=== PATIENT | male | born 1965 | race Two or more races ===

== ENCOUNTER 2018-10-17 15:14 | Emergency (ER) | payer MEDICAID ==
[~2018-10-17] VITALS: Ht 175.3 cm; Wt 90.7 kg
[2018-10-17 15:32] VITALS: BP 123/70
[2018-10-17 15:47] LABS: BASOPHILS % (AUTO) 1.1 % (0.0-2.0); EOSINOPHILS % (AUTO) 7.1 % (0.0-3.0); HEMATOCRIT 46.4 % (42.0-52.0); HEMOGLOBIN 14.9 G/DL (14.2-18.0); LYMPHOCYTES % (AUTO) 8.8 % (20.0-45.0); MEAN CORPUSCULAR VOLUME 84 FL (80-99); MONOCYTES % (AUTO) 7.2 % (1.0-10.0); NEUTROPHILS % (AUTO) 75.8 % (45.0-75.0); PLATELET COUNT 172 K/UL (150-450); RED BLOOD COUNT 5.53 M/UL (4.70-6.10); RED CELL DISTRIBUTION WIDTH 11.9 % (11.6-14.8)
[2018-10-17 16:01] LABS: AMMONIA 31 umol/L (11-32)
--- NOTE | 2018-10-17 16:02 | NUR ---
ED Nurse Note: pt toria from home aloc pt found down on the bed by . called ems . pt was awake alert in AM. Blood sent to lab ekg done pt down to imaging. Addendum: 10/17/18 at 1715 by CDALICEO ED Nurse Note: Pt. brought in by ra Delcid due to aloc
[2018-10-17 16:04] LABS: ANION GAP 12 mmol/L (5-15); BLOOD UREA NITROGEN 12 mg/dL (7-18); CALCIUM 9.1 MG/DL (8.5-10.1); CARBON DIOXIDE 23 MMOL/L (21-32); CHLORIDE 104 MMOL/L (98-107); CREATININE 0.9 MG/DL (0.55-1.30); POTASSIUM 4.1 MMOL/L (3.5-5.1); SODIUM 139 MMOL/L (136-145)
[2018-10-17 16:05] LABS: ALANINE AMINOTRANSFERASE 21 U/L (12-78); ALBUMIN 3.8 G/DL (3.4-5.0); ALBUMIN/GLOBULIN RATIO 0.9 (1.0-2.7); ALKALINE PHOSPHATASE 93 U/L (46-116); ASPARTATE AMINO TRANSFERASE 15 U/L (15-37); BILIRUBIN,TOTAL 0.6 MG/DL (0.2-1.0)
--- NOTE | 2018-10-17 16:27 | Diagnostic Imaging Report ---
Indication: Status Technique: Contiguous 5 mm thick transaxial imaging of the head obtained in a Siemens Sensation [address] scanner. Soft tissue and bone windows generated. Automatic Exposure Control was utilized. Total Dose length Product (DLP): 1410.[address] Dose Index Volume (CTDIvol): 70.38 mGy Comparison: none Findings: There is a 2.2 x 3.9 x 3.4 cm acute hematoma within the left thalamus. The hematoma extends into the ventricular system with hypodense blood demonstrated in both lateral ventricles, the third and fourth ventricles and foramen of Luschka. Moderate ventricular dilatation is present consistent with hydrocephalus. There is considerable artifact limiting evaluation. There is no evidence of midline shift. The cerebral sulci appear relatively symmetric. The basal cisterns are patent but may be slightly diminished in caliber. There is moderate opacification of the paranasal sinuses. IMPRESSION: 2.2 x 3.9 x 2.4 cm acute left thalamic hemorrhage with evidence of intraventricular extension and resultant hydrocephalus. Sinusitis Critical value communication. Findings were discussed via telephone with Dr. Lopez via telephone 4:20 PM 10/09/2018. The CT scanner at [facility] is accredited by the [employer] and the scans are performed using dose optimization techniques as appropriate to a performed exam including Automatic Exposure control.
[2018-10-17] MEDS ORDERED: levETIRAcetam 1,000mg/NS100ml 100 ML IVPB ONE (16:30)
--- NOTE | 2018-10-17 16:36 | NUR ---
ED Nurse Note: per zora pt has a brain bleed being tx'd to HLOC . family at bedside.
[2018-10-17 16:39] VITALS: BP 107/85
--- NOTE | 2018-10-17 16:40 | NUR ---
ED Nurse Note: pt's rectal temp 101.5 ermd informed.
[2018-10-17] MEDS ORDERED: Acetaminophen 650 MG SUPP RECTAL ONE (16:45)
--- NOTE | 2018-10-17 16:57 | Diagnostic Imaging Report ---
Indication: Dyspnea Comparison: None A single view chest radiograph was obtained. Findings: No definite infiltrate or pulmonary vascular congestion identified. The heart is enlarged. The aorta is mildly enlarged consistent with atherosclerotic vascular disease. The bones are osteopenic. Impression: No acute disease
--- NOTE | 2018-10-17 17:05 | NUR ---
Pt was intubated by Abel Lopez MD for airway protection. Pt was intubated with a 7.0 @23 lip line, secured by anchor fast. Alarms are on and audible. Pt placed on AC 16 500 100% +5. Pt transferred to [facility] at 1740. Addendum: 10/17/18 at 1758 by SHONA PATTERSON RT Amended: Links added.
--- NOTE | 2018-10-17 17:05 | NUR ---
Pt was intubated for Airway protection by Abel Lopez MD. Pt intubated with 7.0 @23 lip. Tube is secure and in place by anchor fast. Alarms are on and audible. Pt placed on AC 16 500 100% +5.
--- NOTE | 2018-10-17 17:18 | Emergency Room Report ---
History of Present Illness General Chief Complaint: Altered Level of Consciousness Source: Patient Present Illness HPI 53-year-old male presents ED for altered mental status. Found down at home next with bed vomit on his face. Last known well time was last night. Upon arrival patient nonverbal. Is to be sleeping. No signs of distress. No reported fall or head injury. No other aggravating relieving factors. No other associated symptoms Allergies: Coded Allergies: UNABLE TO ASSESS (Unverified , 10/17/18) Patient History Past Medical History: DM Past Surgical History: none Pertinent Family History: none Social History: Denies: smoking, alcohol use, drug use Immunizations: UTD Reviewed Nursing Documentation: PMH: Agreed; PSxH: Agreed Nursing Documentation-PMH Past Medical History: No History, Except For Hx Diabetes: Yes Review of Systems All Other Systems: limited Physical Exam Vital Signs Date Time Temp Pulse Resp B/P (MAP) Pulse Ox O2 Delivery O2 Flow Rate FiO2 10/17/18 15:16 94 20 123/70 (87) 98 Room Air 10/17/18 16:39 101.5 Sp02 EP Interpretation: reviewed, normal General Appearance: other - GCS 6, Stupor Head: normocephalic Eyes: bilateral eye other - pinpoint pupils ENT: normal ENT inspection Neck: normal inspection Respiratory: chest non-tender, lungs clear, normal breath sounds, speaking full sentences Cardiovascular #1: regular rate, rhythm, no edema Gastrointestinal: normal bowel sounds, non tender, soft, non-distended, no guarding, no rebound Rectal: deferred Genitourinary: no CVA tenderness Musculoskeletal: normal inspection Neurologic: other - altered Psychiatric: other - altered Skin: no rash Lymphatic: normal inspection Procedures Critical Care Time Critical Care Time i. I feel this is a highly complex case requiring extensive working including EKG/Rhythm strip, Xray/CT/US, Blood/urine lab work, repeat exams while in ED, and administration of strong opiates/narcotics for pain control, admission to hospital or close patient follow up. Total time: 60 min bedside evaluation and treatment excludes procedures (EKG). Reason for critical care: thalamic bleed Possible complications: hypotension, hypertension, IA, shock, arrhythmias, metabolic acidosis, end organ damage, respiratory failure. Interventions: labs, EKG, CT head. altagracia. discussion with neurosurgery at [facility]. intubation Course: Is ending with altered mental status. Found down. CT head shows thalamic bleed with extension into ventricles. No mass-effect or midline shift. Concern for airway protection as patient has vomited. Patient intubated for airway protection. Given Keppra. Patient will be transferred to [facility] Consultations: nursing staff, EMS, family Performed by: Dr Lopez Tolerated well condition = critical j. because of unstable vital signs this patient had a condition that could potentially threaten life or limb. I feel this is a critical patient who required my full attention while patient was considered critical. Total Critical Care Time excluding procedures was greater than 60 minutes Intubation Intubation : Consent: Emergent Intubation Method: orotracheal Tube Size (cm): 7.0 Medications: Etomidate, Rocuronium Breath Sounds after Intubation: equal Intubation Complications: no complications Post Intubation Xray: Yes Attempts: One Patient Tolerated: Well Complications: None Medical Decision Making Diagnostic Impression: Primary Impression: Altered level of consciousness Additional Impression: Thalamic hemorrhage ER Course Hospital Course 53-year-old male presents ED with altered mental status. Differential diagnosis includes- breakthrough seizure, alcohol abuse, noncompliance with medication Clinical course Patient placed on stretcher. Initial history and physical I ordered labs, IV fluids, EKG, CT brain Labs- mild leukocytosis, hb/hct stable, electrolytes ok, UDS negative. coags ok EKG - NSR no acute ischemic changes interpreted by me CXR - no acute process CT Brain thalamic bleed with extension into ventricles. No mass-effect or midline shift. Given loading dose of Keppra. Rectal Tylenol for fever. Discussed with [facility] neurosurgery. Recommend intubation. I agree. Patient intubated for airway protection. discussed findings with family at bedside. Explained that patient's prognosis is very critical Patient will be transferred at [facility] for higher level of care. i. I feel this is a highly complex case requiring extensive working including EKG/Rhythm strip, Xray/CT/US, Blood/urine lab work, repeat exams while in ED, and administration of strong opiates/narcotics for pain control, admission to hospital or close patient follow up. Diagnosis - ALOC, thalamic hemorrhage transferred in critical condition Labs Test 10/17/18 15:30 10/17/18 16:20 White Blood Count 12.0 K/UL (4.8-10.8) Red Blood Count 5.53 M/UL (4.70-6.10) Hemoglobin 14.9 G/DL (14.2-18.0) Hematocrit 46.4 % (42.0-52.0) Mean Corpuscular Volume 84 FL (80-99) Mean Corpuscular Hemoglobin 26.9 PG (27.0-31.0) Mean Corpuscular Hemoglobin Concent 32.1 G/DL (32.0-36.0) Red Cell Distribution Width 11.9 % (11.6-14.8) Platelet Count 172 K/UL (150-450) Mean Platelet Volume 10.6 FL (6.5-10.1) Neutrophils (%) (Auto) 75.8 % (45.0-75.0) Lymphocytes (%) (Auto) 8.8 % (20.0-45.0) Monocytes (%) (Auto) 7.2 % (1.0-10.0) Eosinophils (%) (Auto) 7.1 % (0.0-3.0) Basophils (%) (Auto) 1.1 % (0.0-2.0) Prothrombin Time 10.8 SEC (9.30-11.50) Prothromb Time International Ratio 1.0 (0.9-1.1) Activated Partial Thromboplast Time 27 SEC (23-33) Sodium Level 139 MMOL/L (136-145) Potassium Level 4.1 MMOL/L (3.5-5.1) Chloride Level 104 MMOL/L (98-107) Carbon Dioxide Level 23 MMOL/L (21-32) Anion Gap 12 mmol/L (5-15) Blood Urea Nitrogen 12 mg/dL (7-18) Creatinine 0.9 MG/DL (0.55-1.30) Estimat Glomerular Filtration Rate > 60 mL/min (>60) Glucose Level 150 MG/DL (74-106) Lactic Acid Level 1.40 mmol/L (0.4-2.0) Calcium Level 9.1 MG/DL (8.5-10.1) Total Bilirubin 0.6 MG/DL (0.2-1.0) Aspartate Amino Transf (AST/SGOT) 15 U/L (15-37) Alanine Aminotransferase (ALT/SGPT) 21 U/L (12-78) Alkaline Phosphatase 93 U/L (46-116) Ammonia 31 umol/L (11-32) Troponin I 0.000 ng/mL (0.000-0.056) Total Protein 8.2 G/DL (6.4-8.2) Albumin 3.8 G/DL (3.4-5.0) Globulin 4.4 g/dL Albumin/Globulin Ratio 0.9 (1.0-2.7) Salicylates Level 0.4 ug/mL (2.8-20) Acetaminophen Level < 2 MCG/ML (10-30) Serum Alcohol < 3 mg/dL Urine Opiates Screen Negative (NEGATIVE) Urine Barbiturates Screen Negative (NEGATIVE) Phencyclidine (PCP) Screen Negative (NEGATIVE) Urine Amphetamines Screen Negative (NEGATIVE) Urine Benzodiazepines Screen Negative (NEGATIVE) Urine Cocaine Screen Negative (NEGATIVE) Urine Marijuana (THC) Screen Negative (NEGATIVE) EKG Diagnostic Results Rate: normal Rhythm: NSR ST Segments: no acute changes ASA given to the pt in ED: No Rhythm Strip Diag. Results EP Interpretation: yes Rhythm: NSR, no PVC's, no ectopy Chest X-Ray Diagnostic Results Chest X-Ray Diagnostic Results : Chest X-Ray Ordered: Yes # of Views/Limited/Complete: 1 View Indication: Other EP Interpretation: Yes Interpretation: no consolidation, no effusion, no pneumothorax, no acute cardiopulmonary disease Impression: No acute disease Electronically Signed by: Electronically signed by Augusto Lopez MD CT/MRI/US Diagnostic Results CT/MRI/US Diagnostic Results : Imaging Test Ordered: CT Head Impression Findings: There is a 2.2 x 3.9 x 3.4 cm acute hematoma within the left thalamus. The hematoma extends into the ventricular system with hypodense blood demonstrated in both lateral ventricles, the third and fourth ventricles and foramen of Luschka. Moderate ventricular dilatation is present consistent with hydrocephalus. There is considerable artifact limiting evaluation. There is no evidence of midline shift. The cerebral sulci appear relatively symmetric. The basal cisterns are patent but may be slightly diminished in caliber. There is moderate opacification of the paranasal sinuses. Last Vital Signs Date Time Temp Pulse Resp B/P (MAP) Pulse Ox O2 Delivery O2 Flow Rate FiO2 10/17/18 16:39 101.5 18 107/85 93 Room Air 10/17/18 15:32 94 Status: improved Disposition: XFER SHT-TRM HOSP Condition: Critical Referrals: NOT CHOSEN IPA/,REFERRING (PCP) Augusto Lopez MD Oct 17, 2018 17:18
--- NOTE | 2018-10-17 17:20 | NUR ---
ED Nurse Note: pt given 20 atomidate and 50 of Dez during intubation tube 7 23 at lip on the rt.
[2018-10-17 17:22] VITALS: BP 134/96
[2018-10-17 17:45] VITALS: BP 134/96
--- NOTE | 2018-10-17 17:50 | NUR ---
ED Nurse Note: report called to yanelis Carbone . pt tx'd via LAFD unit 61.
--- NOTE | 2018-10-18 11:12 | Diagnostic Imaging Report ---
. Indication: Post intubation Technique: One view of the chest Comparison: none Findings: There is an endotracheal tube in place, tip of which projects 4 cm above the siobhan. There is some atelectasis at the right lung base. Lungs and pleural spaces are otherwise clear. Impression: Satisfactory endotracheal intubation
== END 2018-10-17 17:53 | disposition short-term general hospital (02) ==
LOC: EDBD 15:14 → EMR 16:20
DX: I61.8 Other nontraumatic intracerebral hemorrhage (principal); R41.82 Altered mental status, unspecified
CPT/HCPCS: 31500; 36415; 70450; 71045; 80053; 80307; 80329; 82140; 83605; 84484; 85025; 85610; 85730; 86850; 86900; 86901; 87040; 93005; 94002; 96374; 99291; J1953